=== PATIENT | male | born 1965 | race Caucasian/White ===

== ENCOUNTER 2023-05-19 15:16 | Outpatient (REF) | payer BC, SELFPAY | END 2023-05-19 15:17 | disposition home or self-care (01) | LOC: HO.SH 15:16 | PROVIDERS: Visit Provider Physician Assistant Medical | DX: Z01.118 Encounter for examination of ears and hearing with other abnormal findings (principal); H90.41 Sensorineural hearing loss, unilateral, right ear, with unrestricted hearing on the contralateral side | CPT/HCPCS: 92557; 92567 ==

== ENCOUNTER 2023-10-24 14:39 | Outpatient (REF) | payer BC, SELFPAY ==
--- NOTE | ~2023-10-24 | XR_ITS ---
EXAMINATION: XR CERVICAL SPINE CLINICAL INFORMATION: Cervicalgia. COMPARISON: None available. TECHNIQUE: Frontal and lateral (neutral, flexion, extension and swimmer's) views of the cervical spine were obtained. FINDINGS: Vertebral body heights are normal. There is mild reversal of the normal lordotic curvature. At C2-C3 and C3-C4, there are 2 mm anterolistheses. At C4-C5, there is marked disc space narrowing, with endplate arthropathy. At C6-C7, there is moderately severe disc space narrowing, with endplate arthropathy. No acute fracture or spondylolisthesis is seen. There is no instability with flexion or extension. There is multi-level facet arthropathy. The dens is intact. No prevertebral soft tissue swelling is seen. XR/XR cervical spine 4V IMPRESSION: 1. There is multi-level cervical degenerative disc disease and endplate and facet arthropathy. Degenerative disc disease is most pronounced at C4-C5 through C6-C7, where degenerative change is moderate to severe. 2. No instability is seen with flexion or extension.
== END 2023-10-24 14:40 | disposition home or self-care (01) ==
LOC: HO.HOSX 14:39
PROVIDERS: Visit Provider Physician Assistant
DX: M54.2 Cervicalgia (principal)
CPT/HCPCS: 72050

== ENCOUNTER 2023-10-24 14:39 | Outpatient (AMB) | payer BC, SELFPAY ==
--- NOTE | 2023-10-24 14:42 | A.SPINEOV_ITS ---
Intake Visit Reasons: cervical radiculopathy Intake Note: Mr. Magallanes is here today c/o neck pain that causes numbness on both hands and fingers, also low back pain. Claims Service Adjustor Required: No Allergies No Known Allergies Allergy (Verified 10/24/23 14:52) Assessment & Plan Assessment & Plan (1) Cervicalgia: Code(s): M54.2 - Cervicalgia Category: Medical Plan Dear colleague, Thank you for referring Sharath to our office today. He is a pleasant 58-year-old male who comes in today with a chief complaint of neck/shoulder pain and left-sided hand numbness/weakness. He reports his neck and back pain has been ongoing for the last 35 years. He denies any inciting incident for his pain. When describing his pain he reports no radiculopathy down either arm, and states that his pain is well localized to his neck/shoulders. In addition to this he states his worst upper extremity complaint is his left hand which is numb and has lost the ability to articulate properly due to tingling in his fingertips. He states he has trouble doing simple things such as buttoning his shirt buttons. He denies any issues with balance or walking. 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 He is tried physical therapy, home care administrator, acupuncture, and cortisone injections over the years all of which have not been helpful for him. He also had an electromyogram reportedly 10 years ago which did show carpal tunnel syndrome on the left, however he states the electromyogram also showed symptoms coming from his cervical spine. Presently he is using naproxen intermittently to help control his pain. He denies any bowel or bladder issues. PMH: Left-sided carpal tunnel syndrome. History of colonoscopy, right shoulder repair, skull fracture as a child. Type 2 diabetes (last A1c 6.3%), alcohol use disorder, hyperlipidemia, hypertension, alcoholic cardiomyopathy. Social hx: Patient does not smoke, reports no current alcohol use. Medications: Ropinirole, amlodipine, lisinopril, atorvastatin, vitamin D3, biotin, vitamin-C, magnesium, naproxen, Viagra, aspirin. Allergies: NKDA. Physical exam: On examination, the patient has 4/5 strength with biceps/triceps testing. The rest of his strength is 5/5. He reports a feeling of general numbness/tingling in his left hand predominantly in the fingers. Worse between the first 4 digits. The rest of his sensation is intact. Patient can rise from a seated position without the assistance of a chair and ambulates well. His reflexes are 2+ intact diffusely. He has 2 beats of clonus bilaterally. (-) Jeff's, (-) bilateral straight leg raise, (-) Babinski's bilaterally. Imaging review: MRI of the cervical spine was completed at [facility]. The patient brought his disc. The patient has notable spondylosis of the cervical spine with straightening of the normal cervical lordosis observed starting at C4-5. At C4-5 there appears to be a posterior disc bulge causing severe right-sided and moderate left-sided foraminal stenosis. There is also moderate central canal stenosis at this level. At C5-6 there appears to be moderate central canal and bilateral foraminal stenosis. At C6-7 there is mild right-sided and moderate/severe left-sided foraminal stenosis. There is also moderate central canal stenosis at this level. No notable cord signal change / myelomalacia. 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 He reports a history of longstanding neck/back problems, and also states he has had an EMG completed roughly 10 years ago (does not remember where) that showed he had left-sided carpal tunnel syndrome. If his symptoms are coming from the cervical spine I would think they are coming from the severe left-sided foraminal stenosis at C6-7, as this would best match the dermatomal distribution that his symptoms are in. That being said his hand symptoms could also be explained by left-sided severe carpal tunnel syndrome. However, he is having difficulties with articulation and fine touch, has evidence of clonus on exam, and does have quite a bit of impingement in his cervical spine overall. I would like to send the patient for a set of flexion/extension x-rays to ensure that he has no instability in his cervical spine. I will review his case with Dr. Marlow, and weigh the risks/benefits of sending him for an EMG before beginning a discussion regarding surgery. Thank you for allowing us to care for your patient. The total time spent with this visit with this patient was[] minutes reviewing history, physical exam, [] imaging review, and implementation of treatment plan or further diagnostic testing Venkat Marlow MD,PhD [facility] Orders: Orders XR cervical spine 4V Today M54.2 - Cervicalgia Coding Level of Care Code New Pt Level 4 (93912) Diagnoses Cervicalgia M54.2
== END 2023-10-24 15:37 | disposition home or self-care (01) ==
PROVIDERS: Referring Provider Physician Assistant Medical; Visit Provider Physician Assistant
DX: M54.2 Cervicalgia (principal)
CPT/HCPCS: 99204

== ENCOUNTER 2023-11-22 08:13 | Outpatient (REF) | payer BC, SELFPAY ==
--- NOTE | 2023-11-22 08:16 | EMG_ITS ---
Bilateral median and ulnar motor and sensory studies were performed. Bilateral radial sensory studies were performed and paraspinal muscles were tested with a needle. IMPRESSION: 1. Tfeo-gq-eryeycps bilateral median neuropathy across carpal tunnel. 2. Mild bilateral ulnar neuropathy across cubital tunnel. MD SHERIDAN Valladares/JEAN MARIEL / [phone]
== END 2023-11-22 08:14 | disposition home or self-care (01) ==
LOC: HO.NEURO 08:13
PROVIDERS: PCP Physician Assistant Medical; Visit Provider Physician Assistant
DX: M54.2 Cervicalgia (principal); R20.0 Anesthesia of skin; R20.2 Paresthesia of skin
CPT/HCPCS: 95886; 95911

== ENCOUNTER 2024-01-05 14:49 | Outpatient (AMB) | payer BC, SELFPAY ==
--- NOTE | 2024-01-05 14:53 | HO.SPINEOV ---
Intake Visit Reasons: EMG follow up Intake Note: Mr. Peña is here today to f/u on his EMG results. Continuity Coordinator Required: No Allergies No Known Allergies Allergy (Verified 01/05/24 14:55) Assessment & Plan Assessment & Plan (1) Back pain: Code(s): M54.9 - Dorsalgia, unspecified Category: Medical Plan Mr peña is here in follow up today. He previously saw Venkat Turpin PA-C for neck pain and left hand numbness. He was sent for an EMG which is showing carpal tunnel. Today however, he wishes to talk about issues with his low back. He has been experiencing back pain in center of his back for years. More recently he has been getting pain that shoots down his left leg into the outer calf and top of his foot. He had undergone physical therapy in the past, and underwent injections as well. The injections would help for a little while but ultimately after few days he affect would wear off. 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 He takes Aleve every day to try to help with the pain. Standing and walking can be very difficult as well. It is getting to the point now where it is becoming difficult just to get through a day of work. On his exam, his strength is normal in the lower extremities with normal reflexes. His MRI done of the lumbar spine at [facility] in September of this year shows degenerative disc disease at L4-5 and L5-S1. There is a bulky overgrown osteophyte and left-sided disc collapse at L5-S1 which causes severe narrowing of the foramen at L5. There is a grade 1 spondylolisthesis at L4-5. I am going to send this gentleman for flexion-extension x-rays in the upright position. My suspicion is that it has a combination of factors causing the back pain not the least of which could be these degenerative discs. I feel as though L5-S1 is worse in the sense that disc collapse on the left side of that level is very prominent. I explained to the patient that back pain can often be difficult to know exactly where it is coming from but that degenerative discs can be part of the problem. A surgical solution for that is lumbar fusion, with the end success rate at about 60-70%. We did briefly review the risks, benefits of lumbar fusion but I told the patient I would like to review everything with Dr. Marlow and get back to him with a final plan. Total amount of time spent in this visit was 20 minutes in discussion of symptoms, lumbar MRI imaging results and subsequent plan of care Mauriico Marlow MD,PhD [facility] Orders: Orders XR lumbar spine 4V min Today M54.9 - Dorsalgia, unspecified Coding Level of Care Code Est Pt Level 3 (87087) Diagnoses Back pain M54.9
== END 2024-01-05 15:43 | disposition home or self-care (01) ==
PROVIDERS: PCP Physician Assistant Medical; Visit Provider Physician Assistant
DX: M54.9 Dorsalgia, unspecified (principal)
CPT/HCPCS: 99213

== ENCOUNTER 2024-01-05 14:49 | Outpatient (REF) | payer BC, SELFPAY ==
--- NOTE | ~2024-01-05 | XR_ITS ---
EXAMINATION: XR LUMBAR SPINE CLINICAL INFORMATION: M54.9 - Dorsalgia, unspecified. COMPARISON: None available. TECHNIQUE: AP and lateral views of the lumbar spine were obtained. Lateral views were obtained in flexion, extension, and neutral positions. FINDINGS: Vertebral body heights are normal. No fracture. Mhvnfeug-hz-evfclj degenerative disc disease at L4-L5 and L5-S1 with loss of intervertebral disc height, endplate osteophytes, and endplate irregularity. There is severe facet arthropathy at L4-L5 and L5-S1. More mild degenerative disc disease at L3-L4 and at the level of the lower thoracic spine. Moderate facet arthropathy at L3-L4. Anterolisthesis of L4 on L5 is 6 mm in neutral position as well as flexion and extension. Bone mineralization is normal. Atherosclerotic calcifications are present in the abdominal aorta and iliac arteries. Imaged portions of the sacroiliac joints are normal. XR/XR lumbar spine 4V min IMPRESSION: 1. Ecjxizii-ec-lzylai degenerative disc disease and facet arthropathy at L4-L5 and L5-S1. 2. Grade 1 anterolisthesis of L4 on L5 without evidence of motion with flexion or extension. Electronically signed by: Tim Mcknight MD 01/23/2024 11:10 PM EDT
== END 2024-01-05 14:50 | disposition home or self-care (01) ==
LOC: HO.HOSX 14:49
PROVIDERS: PCP Physician Assistant Medical; Visit Provider Physician Assistant
DX: M54.9 Dorsalgia, unspecified (principal); M51.37 Other intervertebral disc degeneration, lumbosacral region
CPT/HCPCS: 72110

== ENCOUNTER → 2024-02-23 10:28 | Outpatient (BNV) | payer BC, SELFPAY | PROVIDERS: PCP Physician Assistant Medical; Visit Provider Internal Medicine Cardiovascular Disease | DX: I10 Essential (primary) hypertension (principal); M54.9 Dorsalgia, unspecified; Z01.810 Encounter for preprocedural cardiovascular examination | CPT/HCPCS: 93010 ==

== ENCOUNTER 2024-03-08 09:50 | Day surgery (SDC) | payer BC, SELFPAY ==
--- NOTE | 2024-02-23 | ECG_ITS ---
Test Reason : preop Blood Pressure : / mmHG Vent. Rate : 060 BPM Atrial Rate : 060 BPM P-R Int : 120 ms QRS Dur : 090 ms QT Int : 406 ms P-R-T Axes : 071 051 041 degrees QTc Int : 406 ms Normal sinus rhythm Normal ECG No previous ECGs available Referred By: Nasima Weber Electronically Signed By:Yan Singer
[2024-02-23 09:58] VITALS: BP 137/86; PULSE 70; RESP 16; O2SAT 96; BMI 29.3
--- NOTE | 2024-02-23 10:16 | HO.ANESPROP2 ---
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 EF 50-55% 03/2023 PMFSH Active Problems Active Problems: All Active Problems Back pain (Acute) Cervicalgia (Acute) Past Medical History Medical History Numbness Hx of fracture of skull Cervical radiculopathy Alcoholic cardiomyopathy Restless leg syndrome Diabetes History of alcohol abuse Former smoker Mixed hyperlipidemia HTN (hypertension) Lumbar radiculopathy Family History Family history of problems with anesthesia: No Surgical History Surgical History Hx of vasectomy Hx of shoulder surgery H/O colonoscopy History of Problems with Anesthesia: No Social History Social History Are you a primary after school caregiver to a significant other at home: No Do you presently have visiting nurse or other home services: No Patient Tobacco Use Status: Former Tobacco user Use of substances other than those prescribed or required for medical reasons: No Substance Use Frequency: Weekly Have you been hit, kicked, punched, or otherwise hurt by someone within the past year? If so, by whom?: No Are you DNR?: No Advance Directives: No Advance Directives Information Provided: Yes Advance Directives on File: No Recently lost weight without trying: No Eating poorly because of decreased appetite: No Nutrition Risks: No Nutritional Risk Poor oral hygiene: Yes (missing teeth) Meds Allergies Allergy/AdvReac Type Severity Reaction Status Date / Time No Known Allergies Allergy Verified 03/08/24 10:00 Home Medications ?Medication ?Instructions ?Recorded ?Confirmed ?Last Taken ?Type amlodipine 5 mg tablet 5 mg PO DAILY 02/22/24 02/22/24 Unknown History ascorbic acid (vitamin C) 100 mg 200 mg PO DAILY 02/22/24 02/23/24 Unknown History tablet aspirin 81 mg tablet,delayed 81 mg PO DAILY 02/22/24 02/22/24 03/01/24 History release atorvastatin 40 mg tablet 40 mg PO BEDTIME 02/22/24 02/22/24 Unknown History biotin 1 mg capsule 1 mg PO BEDTIME 02/22/24 02/23/24 Unknown History lisinopril 5 mg tablet 5 mg PO DAILY 02/22/24 02/22/24 Unknown History magnesium 100 mg tablet 100 mg PO BEDTIME 02/22/24 02/23/24 Unknown History multivitamin 1 tab PO DAILY 02/22/24 02/22/24 Unknown History naproxen 500 mg tablet 500 mg PO BID PRN Back Pain 02/22/24 02/22/24 03/01/24 History ropinirole 0.5 mg tablet 1.5 mg PO BEDTIME 02/22/24 02/23/24 Unknown History Exam Height,Weight and Vital Signs: Height 5 ft 10 in Weight 92.533 kg Last Vital Signs Pulse 70 02/23/24 09:58 Resp 16 02/23/24 09:58 BP 137/86 02/23/24 09:58 Pulse Ox 96 02/23/24 09:58 O2 Del Method Room Air 02/23/24 09:58 Pertinent Lab Results Pertinent Lab Results: Lab Results 02/23/24 Range/Units 10:40 WBC 7.2 (4.8-10.8) X10*3/uL RBC 4.97 (4.60-5.80) X10*6/uL Hgb 15.3 (14.0-18.0) g/dl Hct 44.4 (42.0-52.0) % MCV 89.3 (80.0-98.0) fL MCH 30.8 (27.0-33.0) pg MCHC 34.5 (31.0-36.0) g/dl RDW 12.6 (11.0-16.0) % Plt Count 274 (160-400) X10*3/uL MPV 11.4 (9.4-12.4) fL Absolute Nucleated RBC 0.000 (0.0-0.012) X10*3/uL Nucleated RBC % (auto) 0.0 (0.0-0.2) /100WBC Sodium 140 (135-145) mmol/L Potassium 4.4 (3.3-5.1) mmol/L Chloride 106 (96-108) mmol/L Carbon Dioxide 28 (22-29) mmol/L Anion Gap 10 L (12-20) BUN 13 (9-16) mg/dL Creatinine 0.95 (0.5-1.4) mg/dL Estim Creat Clear Calc 98.0 Estimated GFR > 60 Random Glucose 126 H (60-115) mg/dL Calcium 10.0 (8.4-10.2) mg/dL Narrative Narrative: EKG 01/2024 Vent. Rate : 060 BPM Atrial Rate : 060 BPM P-R Int : 120 ms QRS Dur : 090 ms QT Int : 406 ms P-R-T Axes : 071 051 041 degrees QTc Int : 406 ms Normal sinus rhythm Normal ECG No previous ECGs available ECHO 2022 Nml with EF 50-55% Airway Mallampati Class: I TM Dist: >3cm Neck ROM: Limited (Herniated cervical disc, no surgery yet) Loose/Missing/Broken Teeth: Yes (4 x molars filled) Heart: RRR Lungs: CTAB Assessment and Plan Assessment Anesthesia Assessment: Anesthesia Plan Discussed and PAT Visit Final Anesthetic Review Family History of Problems with Anesthesia: No History of Problems with Anesthesia: No Documented by User: Yudith Hernandez MD 03/08/24 11:16 PMFSH Active Problems Active Problems: All Active Problems Back pain (Acute) Cervicalgia (Acute). 3 herniated discs with numbness and weakness bilateral hands Past Medical History Medical History Numbness Hx of fracture of skull Cervical radiculopathy Alcoholic cardiomyopathy Restless leg syndrome Diabetes History of alcohol abuse Former smoker Mixed hyperlipidemia HTN (hypertension) Lumbar radiculopathy Family History Family history of problems with anesthesia: No Surgical History Surgical History Hx of vasectomy Hx of shoulder surgery H/O colonoscopy History of Problems with Anesthesia: No Social History Social History Are you a primary after school caregiver to a significant other at home: No Do you presently have visiting nurse or other home services: No Patient Tobacco Use Status: Former Tobacco user Use of substances other than those prescribed or required for medical reasons: No Substance Use Frequency: Weekly Have you been hit, kicked, punched, or otherwise hurt by someone within the past year? If so, by whom?: No Are you DNR?: No Advance Directives: No Advance Directives Information Provided: Yes Advance Directives on File: No Recently lost weight without trying: No Eating poorly because of decreased appetite: No Nutrition Risks: No Nutritional Risk Poor oral hygiene: Yes (missing teeth) Meds Allergies Allergy/AdvReac Type Severity Reaction Status Date / Time No Known Allergies Allergy Verified 03/08/24 10:00 Home Medications ?Medication ?Instructions ?Recorded ?Confirmed ?Last Taken ?Type amlodipine 5 mg tablet 5 mg PO DAILY 02/22/24 02/22/24 Unknown History ascorbic acid (vitamin C) 100 mg 200 mg PO DAILY 02/22/24 02/23/24 Unknown History tablet aspirin 81 mg tablet,delayed 81 mg PO DAILY 02/22/24 02/22/24 03/01/24 History release atorvastatin 40 mg tablet 40 mg PO BEDTIME 02/22/24 02/22/24 Unknown History biotin 1 mg capsule 1 mg PO BEDTIME 02/22/24 02/23/24 Unknown History lisinopril 5 mg tablet 5 mg PO DAILY 02/22/24 02/22/24 Unknown History magnesium 100 mg tablet 100 mg PO BEDTIME 02/22/24 02/23/24 Unknown History multivitamin 1 tab PO DAILY 02/22/24 02/22/24 Unknown History naproxen 500 mg tablet 500 mg PO BID PRN Back Pain 02/22/24 02/22/24 03/01/24 History ropinirole 0.5 mg tablet 1.5 mg PO BEDTIME 02/22/24 02/23/24 Unknown History Exam Height,Weight and Vital Signs: Height 5 ft 10 in Weight 92.533 kg Last Vital Signs Pulse 70 02/23/24 09:58 Resp 16 02/23/24 09:58 BP 137/86 02/23/24 09:58 Pulse Ox 96 02/23/24 09:58 O2 Del Method Room Air 02/23/24 09:58 Vital Signs Temp Pulse Resp BP Pulse Ox O2 Del Method 03/08/24 10:17 97.5 F 80 15 149/87 H 96 Room Air Airway Mallampati Class: II TM Dist: >3cm Neck ROM: Full (Herniated cervical discs) Loose/Missing/Broken Teeth: Yes (Missing molars. Denies broken or loose teeth) Heart: RRR Lungs: CTAB Assessment and Plan Assessment Anesthesia Assessment: Anesthesia Plan Discussed, PAT Visit and Chart Reviewed Final Anesthetic Review Family History of Problems with Anesthesia: No History of Problems with Anesthesia: No NPO: Yes ASA Class: III Final Preanesthetic Review: No Changes in Pt Med Stat, Meds/Allgs Chart Reviewed, Consent Obtained/Reviewed and Anes Risks/Benef Reviewed Patient Risk: Intermediate Procedure Risk: Low Assessment/Block/Sedation in SS: Assess/Block/Sedation-SS Anesthetic Plan Anesthetic Plan: GA Disposition: Standard PACU
[2024-02-23 10:55] LABS: Hematocrit 44.4 % (42.0-52.0); Hemoglobin 15.3 g/dl (14.0-18.0); Mean Corpuscular HGB Conc 34.5 g/dl (31.0-36.0); Mean Corpuscular Hemoglobin 30.8 pg (27.0-33.0); Mean Corpuscular Volume 89.3 fL (80.0-98.0); Mean Platelet Volume 11.4 fL (9.4-12.4); Platelet Count 274 X10*3/uL (160-400); Red Blood Count 4.97 X10*6/uL (4.60-5.80); Red Cell Distribution Width 12.6 % (11.0-16.0); White Blood Count 7.2 X10*3/uL (4.8-10.8)
[2024-02-23 11:39] LABS: Anion Gap 10 (12-20); Blood Urea Nitrogen 13 mg/dL (9-16); Carbon Dioxide 28 mmol/L (22-29); Chloride 106 mmol/L (96-108); Estimated Glomerular Filt Rate > 60; Glucose Random 126 mg/dL (60-115); Potassium 4.4 mmol/L (3.3-5.1); Sodium 140 mmol/L (135-145)
[2024-03-08] VITALS (9 sets, daily range): BP systolic 108–149; BP diastolic 64–93; PULSE 60–81; RESP 12–18; TEMP 36.1–36.4; O2SAT 96–100; BMI 27.7
--- NOTE | 2024-03-08 10:01 | MHC.SHP ---
Pre-Procedural Eval Section A - 24 Hr Update-Section A only Date of Service: 03/08/24 The patient is an INPATIENT: No Section B - Complete if H&P > 30 days Chief Complaint: Dorsalgia, unspecified Details of Present Illness: Left lumbar radiculopathy Allergies: Allergies Allergy/AdvReac Type Severity Reaction Status Date / Time No Known Allergies Allergy Verified 03/08/24 10:00 Review of Systems Sugical H&P ROS: Negative: Constitution, Cardiovascular, Respiratory, Neurological, Psychiatric, Hem-Onc, Allergic/Immunologic, Gastrointestinal, Genitourinary, Musculoskeletal, Integumentary, Endocrine and Eyes/Ears/Nose/Throat Exam Surgical H&P Exam: Normal: HEENT, Normal: Heart, Normal: Lungs, Normal: Extremities, Normal: Abdomen, Normal: Skin and Normal: Neurological (Awake, alert) Plan Diagnosis/Plan: Unchanged I have reviewed the history and physical and performed a pertinent physical examination on my patient. No changes have occurred unless specified. Left L5 foraminotomy Time Spent With Patient Time: Total time managing care of this patient today ____ minutes.
[2024-03-08] MEDS: methocarbamoL 750 MG TABLET PO (10:11)
[2024-03-08] MEDS: Gabapentin 300 MG CAPSULE PO (10:11)
[2024-03-08] MEDS: Lactated Ringers 1,000 ML 100 ML IVCONT (10:30)
--- NOTE | 2024-03-08 12:55 | P.OP_ITS ---
Operative Note Operative Note Date of Service: 03/08/24 Narrative: Preoperative Diagnosis: Spinal stenosis/lateral recess stenosis/neural foraminal stenosis Operation: Left L5 Laminotomy, Partial facetectomy and foraminotomy with use of microscope Consent Informed Consent was obtained for this operation. I have explained the nature, purpose and benefits of the operation. I have discussed the risks and benefit of the operation including possible complications or adverse events with patient/family. Alternative(s) were discussed with the patient with their relative benefits and risks as well as the consequences of not accepting the operation were included in obtaining consent. Surgeon: EDDIE SANCHEZ MD, PHD Procedure Assisted By: uriel Varma Description of Procedure This patient is suffering from a left L5 to L5 neuroforaminal stenosis. The patient was offered a decompression of the nervous structures. The procedure complications were explained. The patient was consented. The patient was brought to the operating room and endotracheally intubated. The patient was turned in prone position on the Jabier frame. Prep and drape was done followed by timeout. Physician permit review assistant provided access. A mid lumbar incision was made followed by release of the paravertebral muscle on the left side to expose the L5 lamina and facet joint. An intraoperative x-ray was obtained to confirm the correct level. The microscope was brought in. I took over the procedure. The high-speed drill was used to do a L5 laminotomy. #2 Kerrison was used to further remove the lamina towards the L5 foramen. With a nerve hook the medial wall of the L5 pedicle was palpated as well as the beginning of the L5 foramen. The facet joint was partially drilled down after which with a #2 Kerrison a foraminotomy was done. Finally a foraminotomy Kerrison was used to complete the foraminotomy. A long nerve hook could be easily passed lateral and dorsally from the nerve root, a sign of relief of the neuroforaminal stenosis and decompression of the nerve root . The microscope was removed. Hemostasis was done. Incision was closed in 2 layers. Steri-Strips were used to approximate incision. An OpSite with Tegaderm was used to cover the incision. All sponge needle counts were correct. Patient was extubated and transported in stable is to recovery room. Anesthesia: General Estimated Blood Loss (ml): Minimal Duration of Surgery: Under 60 Minutes Postoperative Plan: Discharge to home
--- NOTE | 2024-03-08 13:04 | PM.DS ---
DS: Providers Provider Date of Service: 03/08/24 Primary care physician: OLEKSANDR Phillip DS: Summary Time Attestation Discharge Coordination Time (in mins): 15 Quality: Safe Use of Opioids Does Pt have an Active Cancer Diagnosis on the Problem List?: No Quality: Stroke Does the patient have a stroke diagnosis?: No Physical Exam Vital Signs: Vital Signs: Last Vital Signs Temp 97 F 03/08/24 12:55 Pulse 60 03/08/24 12:55 Resp 16 03/08/24 12:55 BP 124/60 03/08/24 12:55 Pulse Ox 97 03/08/24 12:55 O2 Del Method Nasal Cannula 03/08/24 12:55 O2 Flow Rate 3 03/08/24 12:55 BMI result Body Mass Index 27.7 Discharge Plan Discharge Patient Disposition: Home, Self-Care Referrals: Mauricio March PA [Primary Care Provider] - 1 Week Discharge Medications: New oxycodone 5 mg tablet 5 mg PO Q6H PRN (Reason: severe pain (scale score 7-10)) Qty: 30 0RF Rx Instructions: Partial Fill upon patient request. Continued atorvastatin 40 mg Tablet 40 mg PO BEDTIME amlodipine 5 mg Tablet 5 mg PO DAILY ropinirole 0.5 mg Tablet 1.5 mg PO BEDTIME lisinopril 5 mg Tablet 5 mg PO DAILY multivitamin Tablet 1 tab PO DAILY magnesium 100 mg Tablet 100 mg PO BEDTIME ascorbic acid (vitamin C) 100 mg Tablet 200 mg PO DAILY biotin 1 mg Capsule 1 mg PO BEDTIME Held aspirin 81 mg Tablet,Delayed Release (Dr/Ec) 81 mg PO DAILY Hold Instructions: Resume on 03/13/24. naproxen 500 mg Tablet 500 mg PO BID PRN (Reason: Back Pain) Hold Instructions: Resume on 03/09/24. Discharge Orders: Discharge Order (Routine); Ordered 03/08/24 Ordered By: Venkat Turpin Diet: Advance to usual diet Activity on Discharge: As tolerated Activity Restrictions/Additional Instructions: After your spinal surgery we ask you to observe the following restrictions/guidelines: Activity: It is normal to feel some discomfort as you increase your activity, but that will improve with time. We ask you avoid heavy lifting or acitivities that cause pain. As a general rule, 8lbs is a safe limit for lifting right after surgery. Walk as much as you feel comfortable but not to exhaustion. You will feel extra tired the first few days after surgery. Stay well hydrated. It is OK to walk up and down stairs You may return to driving when you are off narcotics (such as vicodin, oxycodone, dilaudid, etc), and you are back to normal functional capacity. If you have any concerns please check with office before driving. Return to work is specific to each patient and each surgery, so please speak with your doctor/PA at first follow up. Please bring paperwork such as FMLA at that time if you need it filled out. Medications: We recommend you take 1,000mg Tylenol every 8 hours for the first few weeks after surgery, if you do not have any liver issues and can tolerate this medication. Do not exceed 4,000mg daily. We will give you a short supply of narcotics after surgery (usually one weeks worth). If you need more please call the office but do not use more than prescribed. You will need to give our office 48 hours notice if you need narcotics refilled and we do not fill narcotics on weekends or evenings. If you are on a narcotic, it is a good idea to take a stool softener such as colace or senna to avoid constipation If you take blood thinner such as aspirin, Plavix, Coumadin, Effient, Eliquis etc for conditions such as Afib, DVT, Pulmonary embolus, coronary disease, stents etc please speak with your surgeon about specific details as to when you can resume these medications. You can resume NSAIDs on post op day 1 (eg: Motrin, Naproxen, etc). Follow up: Please call the office, , after surgery to arrange a 3 week follow up for wound check. Wound Care: You may remove your dressing on the first day after surgery. ?You may ?leave open to air. Please do not remove the steri strips underneath. they will fall off on their own in one week. IT IS NORMAL FOR THE WOUND TO OOZE OR BE BLOODY FOR A FEW DAYS AFTER SURGERY. ?IF THIS HAPPENS JUST PLACE NEW DRESSING OVER IT TO AVOID STAINING CLOTHES. You may shower on post op day # 1 We ask that you do not let the water soak the wound. If it does get wet, just towel dry lightly. Please do not scrub your incision or place any type of chemical/ointment on the wound. No tub baths, pools or jacuzzis for one month. If you have any leaking or redness from your wound, or fevers, please call the office. Print Language: German
[2024-03-08] MEDS: fentaNYL citrate/PF 100 MCG/2 ML VIAL 25 MCG IVPUSH (13:55)
[2024-03-08] MEDS: oxyCODONE HCl Immed Release 5 MG TABLET PO (14:00)
== END 2024-03-08 14:53 | disposition home or self-care (01) ==
PROVIDERS: Nurse Practitioner; PCP Physician Assistant Medical; Visit Provider Neurological Surgery
PROC: (CPT 63047; principal; 2024-03-08 12:00)
DX: M48.061 Spinal stenosis, lumbar region without neurogenic claudication (principal); Z79.1 Long term (current) use of non-steroidal anti-inflammatories (NSAID); M79.606 Pain in leg, unspecified; R26.2 Difficulty in walking, not elsewhere classified; Z79.82 Long term (current) use of aspirin; M54.9 Dorsalgia, unspecified
CPT/HCPCS: 63047; 36415; 80048; 85027; 93005; J0131; J0690; J1100; J1885; J2003; J2250; J2405; J2704; J3010

== ENCOUNTER → 2024-03-08 09:50 | Outpatient (BNV) | payer BC, SELFPAY | PROVIDERS: PCP Physician Assistant Medical; Visit Provider Neurological Surgery | DX: M48.062 Spinal stenosis, lumbar region with neurogenic claudication (principal) | CPT/HCPCS: 63047; 99499 ==

== ENCOUNTER 2024-04-02 10:30 | Outpatient (AMB) | payer BC, SELFPAY ==
--- NOTE | 2024-04-02 09:44 | HO.SPINEOV ---
Intake Visit Reasons: 1st post op Intake Note: Mr. Magallanes is here today for his 1st post op visit. 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 He underwent a left L5 foraminotomy. To recap he was initially evaluated in clinic for his cervical spine complaints. He was found to have stenosis at C6-7 on the left, and was sent for a subsequent EMG, which again showed significant carpal tunnel syndrome. When he was re-evaluated in clinic he wished to discuss his lumbar spine concerns. He reported pain that shoots down his left leg into the outer calf and top of his foot. After imaging review he was consented and scheduled for left L5 Laminotomy, Partial facetectomy and foraminotomy to address his lumbar radiculopathy. Since his surgery reports he has been doing much better. His left leg pain is essentially resolved. He gets the occasional twinges of pain in his left lower back, but he feels these are few and far between. He also states that since the surgery his left upper extremity symptoms have been much better. I answered several questions regarding the postoperative healing course, and we discussed the possibility of addressing his severe left-sided C6-7 compression in his left carpal tunnel syndrome concurrently in the future if needed pending subsequent evaluation. No new neurological deficits. The patient ambulates well and rises from a seated position without difficulty. His posterior incision site is closed and well healing with no signs of drainage. I encouraged Sharath to follow up with us on an as-needed basis, based on his symptoms. Venkat Marlow MD,PhD [facility] Coding Level of Care Code Global (48379) Diagnoses Status post lumbar spine surgery for decompression of spinal cord Z98.890
== END 2024-04-02 11:19 | disposition home or self-care (01) ==
PROVIDERS: PCP Physician Assistant Medical; Visit Provider Physician Assistant
DX: Z98.890 Other specified postprocedural states (principal)
CPT/HCPCS: 99024

== ENCOUNTER → 2024-04-02 10:30 | Outpatient (BNVA) | payer BC, SELFPAY | PROVIDERS: PCP Physician Assistant Medical; Visit Provider Physician Assistant ==